=== PATIENT | male | born 1945 | race Caucasian/White ===

== ENCOUNTER → 2017-08-06 | Outpatient (CLI) | payer MEDICARE ==
[~2017-08-06] VITALS: Ht 177.8 cm; Wt 61.0 kg
[~2017-08-06] MED LIST: AMLO10TA2 PO; ASPI-691 PO; BP MEDS; CELE200C PO; FENTANYL PF 100 MCG/2ML ONE; FINA5TAB4 PO; LACTATED RINGERS 1,000 ML IV SCH; LIDOCAINE 1%, 2ML SQ PRN; LIDOCAINE-MPF 2% ,5ML ONE; MIDAZOLAM 1 MG/ML, 2ML ONE; NEBI10TA3 PO; PROPOFOL 10 MG/ML, 20ML ONE; TAMS0.4C2 PO; [UNRECOGNIZED DRUG - OTHER]
[2017-08-06 11:19] VITALS: BP 184/101
[2017-08-06 11:30] VITALS: BP 184/101
[2017-08-06 12:16] LABS: PATH.CAST-FLAG NOT PRESENT; SPERM-FLAG NOT PRESENT; SRC-FLAG NOT PRESENT; XTAL-FLAG NOT PRESENT; YLC-FLAG NOT PRESENT
== END | disposition home or self-care (01) ==
LOC: OUT 10:53 → EDSTATUS 14:30
PROVIDERS: ATTEND Student in an Organized Health Care Education/Training Program
DX: Z01.818 Encounter for other preprocedural examination (principal); R94.31 Abnormal electrocardiogram [ECG] [EKG]; N40.0 Benign prostatic hyperplasia without lower urinary tract symptoms
CPT/HCPCS: 81001; 93005; J2250; J2704; J3010; J3490

== ENCOUNTER 2017-09-26 09:00 | Observation (INO) | payer MEDICARE ==
[~2017-09-26] VITALS: Ht 180.3 cm; Wt 60.2 kg
[~2017-09-26 09:00] MED LIST changes: -FENTANYL PF 100 MCG/2ML ONE; -LACTATED RINGERS 1,000 ML IV SCH; -LIDOCAINE 1%, 2ML SQ PRN; -LIDOCAINE-MPF 2% ,5ML ONE; -MIDAZOLAM 1 MG/ML, 2ML ONE; -PROPOFOL 10 MG/ML, 20ML ONE
[2017-09-26 09:36] VITALS: BP 166/94
[2017-09-26] MEDS ORDERED: LACTATED RINGERS 1,000 ML IV SCH (09:57)
[2017-09-26] MEDS ORDERED: MIDAZOLAM 1 MG/ML, 2ML ONE (10:38)
[2017-09-26] MEDS ORDERED: FENTANYL PF 100 MCG/2ML ONE (10:38)
[2017-09-26] MEDS ORDERED: PROPOFOL 10 MG/ML, 20ML ONE (10:52)
[2017-09-26] MEDS ORDERED: DEXAMETHASONE 4 MG/ML, 1ML ONE (10:52)
[2017-09-26] MEDS ORDERED: ONDANSETRON 2MG/ML, 2ML ONE ×2 (10:52→14:27)
[2017-09-26] MEDS ORDERED: SUCCINYLCHOLINE 20 MG/ML, 10ML ONE (10:52)
[2017-09-26] MEDS ORDERED: CEFAZOLIN 1,000 MG ONE (10:52)
[2017-09-26] MEDS ORDERED: ROCURONIUM 10 MG/ML,10ML ONE (10:52)
[2017-09-26] MEDS ORDERED: OXYcodone 5 MG/5 ML ORAL.SOL UDC PO PRN (11:30)
[2017-09-26] MEDS ORDERED: METOCLOPRAMIDE 5 MG/ML, 2ML IV PRN ×2 (11:30→19:00)
[2017-09-26] MEDS ORDERED: FENTANYL PF 100 MCG/2ML IV PRN (11:30)
[2017-09-26] MEDS ORDERED: hydrALAzine 20 MG/ML, 1ML IV PRN (11:30)
[2017-09-26] MEDS ORDERED: LABETALOL 5MG/ML, 20ML IV PRN (11:30)
[2017-09-26] MEDS ORDERED: ACETAMINOPHEN 325 MG TABLET PO PRN (11:30)
[2017-09-26] MEDS ORDERED: HYDROmorphone 1 MG/ML, 1ML IV PRN (11:30)
[2017-09-26] MEDS ORDERED: FUROSEMIDE 20 MG/2 ML IV ONE (13:21)
[2017-09-26] MEDS: ONDANSETRON 2MG/ML, 2ML IVPush PRN ×2 (14:28→14:29)
[2017-09-26] MEDS: SODIUM CHLORIDE 0.9% 1,000 ML IV SCH (18:40)
[2017-09-26] MEDS ORDERED: KETOROLAC 30 MG/1 ML IV PRN (19:00)
[2017-09-26] MEDS ORDERED: OXYBUTYNIN CHLORIDE 5 MG TABLET PO PRN (19:00)
[2017-09-26] MEDS ORDERED: ONDANSETRON 2MG/ML, 2ML IV PRN (19:00)
[2017-09-26] MEDS ORDERED: OXYcodone/APAP 5/325MG TABLET PO PRN (19:00)
[2017-09-26 20:00] VITALS: BP 156/88
[2017-09-26] MEDS: CEFAZOLIN PMX 1GM/50ML 50 ML IVPB SCH (20:18)
[2017-09-26] MEDS ORDERED: TAMSULOSIN 0.4 MG CAP.ER.24H PO SCH (21:00)
[2017-09-27 00:06] VITALS: BP 146/75
[2017-09-27] MEDS: SODIUM CHLORIDE 0.9% 1,000 ML IV SCH (02:30)
[2017-09-27] MEDS: CEFAZOLIN PMX 1GM/50ML 50 ML IVPB SCH (04:12)
[2017-09-27 04:20] VITALS: BP 138/74
[2017-09-27] MEDS ORDERED: NEBIVOLOL HCL 5 MG TABLET PO SCH (06:00)
[2017-09-27 06:58] VITALS: BP 139/78
[2017-09-27] MEDS ORDERED: AMLODIPINE 5 MG TABLET PO SCH (09:00)
[2017-09-27] MEDS ORDERED: FINASTERIDE 5 MG TABLET PO SCH (09:00)
== END 2017-09-27 10:30 | disposition home or self-care (01) ==
LOC: OR 09:00 → 4NOR 18:05 → OR 22:46
PROVIDERS: ADMIT Student in an Organized Health Care Education/Training Program; ATTEND Student in an Organized Health Care Education/Training Program
DX: N40.1 Benign prostatic hyperplasia with lower urinary tract symptoms (principal); N32.0 Bladder-neck obstruction; R33.8 Other retention of urine; R35.1 Nocturia; I10 Essential (primary) hypertension; F17.210 Nicotine dependence, cigarettes, uncomplicated; Z80.8 Family history of malignant neoplasm of other organs or systems
CPT/HCPCS: 52648; 96365; 96375; C1769; G0378; J0330; J0690; J1100; J1940; J2250; J2405; J2704; J3010; J7030; J7120